=== PATIENT | male | born 1955 | race Caucasian/White ===

== ENCOUNTER 2019-02-10 10:40 | Observation (INO) ==
[2019-02-10 11:20] LABS: BASO# 0.01 X1000 (0.0-0.2); BASO% 0.1 % (0.0-0.8); EOS# 0.13 X1000 (0.0-0.7); EOS% 1.9 % (0.0-10.0); HEMATOCRIT 41.8 % (42.0-52.0); LYMPH# 1.01 X1000 (1.2-3.4); LYMPH% 14.7 % (20.5-51.1); MCH 29.2 PG (27-31); MCHC 33.5 g/dL (33-37); MCV 87.3 FL (81-99); MONO% 7.3 % (1.7-9.3); MPV 10.9 FL (7.4-10.4); NEUT# 5.22 X1000 (1.4-6.5); PLT 201 X1000 (130-400); RBC 4.79 XMIL (4.7-6.1); RDW 13.2 % (11.5-14.5); WBC 6.87 X1000 (4.8-10.8)
--- NOTE | 2019-02-10 11:23 | Diag Imaging Result Doc PS360 ---
EXAM: CHEST-PORTABLE - 02/10/2019 HISTORY: hypotension TECHNIQUE: Portable chest COMPARISON: 01/04/2019 FINDINGS: Heart size is normal. There are apparent mild COPD changes. There is stable right lower lung granuloma from old granulomatous disease. Lungs appear to be clear of acute changes. There is no consolidation, vascular congestion, pleural effusion, or pneumothorax identified. Central venous catheter remains in place. IMPRESSION: Mild COPD changes. No evidence of acute disease. Electronically signed by Ashwin Collado 02/10/2019 11:20 AM
--- NOTE | 2019-02-10 11:39 | EKG Report ---
Test Performed on : 02/10/2019 10:53:09 AM Test Reason : dizzines Blood Pressure : / mmHG Vent. Rate : 091 BPM Atrial Rate : 091 BPM P-R Int : 154 ms QRS Dur : 096 ms QT Int : 400 ms P-R-T Axes : 058 077 062 degrees QTc Int : 492 ms Normal sinus rhythm. Prolonged QT Abnormal ECG When compared with ECG of 08-JAN-2019 15:49, (Unconfirmed) T wave inversion no longer evident in Lateral leads Unconfirmed Result
[2019-02-10 12:31] LABS: ALB/GLOB RATIO 1.6; ALBUMIN 4.1 g/dL (3.5-5.0); CALCIUM 8.9 mg/dL (8.8-10.2); POTASSIUM 4.1 mmol/L (3.5-5.1); TOTAL BILIRUBIN 0.79 mg/dL (0.20-1.00); TOTAL PROTEIN 6.6 g/dL (6.3-8.3)
[2019-02-10] MEDS ORDERED: NS 1,000 ML IV ONE (13:19)
[2019-02-10] MEDS ORDERED: NS 500 ML IV ONE (13:19)
--- NOTE | 2019-02-10 13:19 | PROVIDER DOCUMENTATION ---
This chart was entered by Cristina Jaimes Scribe, acting as scribe for Oumar Ramirez MD. HPI-General Adult - General Chief Complaint: Dizziness Stated Complaint: LOW BP WEAKNESS Time Seen by Provider: 02/10/19 10:45 Source: patient, family () Allergies/Adverse Reactions: Patient Allergies Allergy/AdvReac Type Severity Reaction Status Date / Time No Known Allergies Allergy Verified 02/10/19 11:16 Home Medications: Home Medication List Medication Instructions Recorded Confirmed Last Taken Type Albuterol Sulfate Inhaler 2 puff INH [id number] PRN 02/10/19 02/10/19 02/10/19 History [Ventolin Hfa] Amlodipine [Norvasc] 5 mg PO DAILY 02/10/19 02/10/19 02/10/19 History Fluticasone/Umeclidin/Vilanter 1 ea INHALATION QAM 02/10/19 02/10/19 02/10/19 History [Trelegy Ellipta 100-62.5-25] Irbesartan [Avapro] 300 mg PO QAM 02/10/19 02/10/19 02/10/19 History Losartan [Cozaar] 50 mg PO DAILY 02/10/19 02/10/19 02/10/19 History - History of Present Illness -Gen Adult Nature of Presenting Problems: 63 yowm presents to the ed with multiple complaints acute onset yesterday morning. pt c/o hypotensive, dizziness, sob, nausea, syncope, left lateral neck fatigue, ARAIZA and left arm fatigue. pt sts on exam has improved and is nontoxic in appearance pt sts PCP changed his BP medication 2 weeks prior but has been doing well till onset yesterday Location of Pain/Injury: reports: head (ARAIZA) Pain Radiation: reports: no radiation Quality of Pain: reports: aching, fullness Severity: reports: mild Onset/Duration: reports: 24 hours ago Timing: reports: improving, intermittent Context/Activities at Onset: reports: light activity Modifying Factors: improves with: nothing Associated Symptoms: reports: dizziness, fatigue, headaches, malaise, muscle aches (left lateral neck and left arm), nausea, shortness of breath, syncope (x2 today). denies: back/neck pain, chest pain, cough, diarrhea, fever/chills, vomiting Similar Symptoms Previously?: No Recently seen or treated by another doctor?: No Review of Systems - Adult - REVIEW OF SYSTEMS - ADULT Constitutional: reports: see HPI, fatique. denies: chills, fever Eyes: denies: blurred vision, double vision Ears, Nose, Mouth & Throat: reports: no symptoms reported Cardiovascular: denies: chest pain, orthopnea, palpitations Respiratory: reports: see HPI, shortness of breath. denies: cough, wheezing Gastrointestinal: reports: see HPI, nausea. denies: abdominal pain, diarrhea, vomiting Genitourinary: reports: no symptoms reported Musculoskeletal: reports: see HPI, muscle aches (left neck and left arm), neck pain. denies: back pain Integumentary: reports: no symptoms reported Neurological: reports: see HPI, dizziness/vertigo, headache/migraines, syncope. denies: ataxia, seizure, tremors Psychiatric: reports: no symptoms reported Endocrine: reports: no symptoms reported Hematologic/Lymphatic: reports: no symptoms reported Allergic/Immunologic: reports: no symptoms reported All Other Systems: Reviewed and Negative Past History - Adult - PAST MEDICAL HISTORY-ADULT Review of Records: reports: Old Records Reviewed, Nursing Assessment Review, Medications Reviewed, Social history reviewed & non-contributory. Major Childhood Illnesses: reports: denies history Cardiovascular: reports: HTN Respiratory: reports: denies history Gastrointestinal: reports: denies history Genitourinary: reports: denies history Musculoskeletal: reports: denies history Neurological: reports: denies history Psychiatric: reports: denies history Endocrine/Immune: reports: denies history Other Conditions: reports: denies history Additional History: rectal cancer - PRIOR SURGERIES/PROCEDURES Surgical/Procedure History: denies: recent surgery - IMMUNIZATION STATUS Childhood Immunizations: See Nurse Assessment Flu Vaccine: See Nurse Assessment - FAMILY HISTORY Family History: reviewed, not pertinent - SOCIAL HISTORY Smoking: quit greater than 1 year Substance Use: denies Living Situation: family Physical Exam-General - PHYSICAL EXAM-ADULT Initial Vital Signs Reviewed: Yes - CONSTITUTIONAL General Appearance: appears well, alert, no apparent distress (pt is nontoxic in apperance) - EYES Eyes: PERRL/EOMI, pink conjunctivae - HEAD, EARS, NOSE, MOUTH & THROAT HENMT: moist mucous membranes. negative: other (no teeth) - NECK Neck: normal inspection, tender lateral (left side) - RESPIRATORY Respiratory: chest non-tender, lungs clear, normal breath sounds - CARDIOVASCULAR Cardiovascular: normal peripheral pulses, regular rate, rhythm - CHEST (BREASTS) Chest/Breast: deferred - GASTROINTESTINAL (ABDOMEN) Abdominal Exam: normal bowel sounds, non tender, soft, other (well healed scar on RLQ) - GENITOURINARY Male Genitalia: deferred Rectal Exam: deferred Hemoccult Exam: deferred - LYMPHATIC Lymphatic: no adenopathy - MUSCULOSKELETAL Back Exam: normal inspection, no CVA tenderness, no vertebral tenderness Extremity: normal range of motion, normal gait, normal inspection, no pedal edema, no calf tenderness, normal capillary refill, other (lue fatigue) - SKIN Integumentary: normal color, normal turgor, warm/dry - NEUROLOGIC Neurologic: grossly normal - PSYCHIATRIC Psych/Mental Status: normal mood/affect, normal thought content, normal thought process, oriented x 3 Progress - PLAN OF CARE/RESULTS Progress/Plan/Lab Results: Vital Signs - 8 hr 02/10/19 10:45 Temperature 97.7 F Pulse Rate 98 H Respiratory Rate 20 Blood Pressure 106/68 O2 Sat by Pulse Oximetry 97 Laboratory Results - last 24 hr 02/10/19 11:09 POC Glucose 136 H Orders Category Date Time Status Nursing- Obtain EKG ONCE Care 02/10/19 11:00 Active CHEST-PORTABLE [RAD] Stat Exams 02/10/19 11:00 Ordered CBC WITH DIFF [HEME] Stat Lab 02/10/19 11:02 Ordered COMPREHENSIVE METABOLIC PANEL [CHEM] Stat Lab 02/10/19 11:02 Ordered TROPONIN T Stat Lab 02/10/19 11:00 Ordered EKG [EKG] Stat Ther 02/10/19 10:49 Ordered EKG [EKG] Stat Ther 02/10/19 11:00 Ordered Result Diagrams: 02/10/19 11:10 02/10/19 11:10 - REASSESSMENT Reassessment #1 Time Reassessed: 13:17 Status: unchanged (no distress and dr ramirez at bedside) - EKG 1 Time of EKG reading by physician:: 10:53 EKG Read and Signed by:: Oumar Ramirez EKG Interpretation (*Must complete 3 of following elements*): Abnormal Rate: 91 Rhythm: nsr [place]: normal QRS: other (prolonged QT) NM Interval: normal ST Wave: normal - XRAY 1 XRAY: Bilateral XRAY Study: Chest Impression: See EMR Report (EXAM: CHEST-PORTABLE - 02/10/2019 HISTORY: hypotension TECHNIQUE: Portable chest COMPARISON: 01/04/2019 FINDINGS: Heart size is normal. There are apparent mild COPD changes. There is stable right lower lung granuloma from old granulomatous disease. Lungs appear to be clear of acute changes. There is no consolidation, vascular congestion, pleural effusion, or pneumothorax identified. Central venous catheter remains in place. IMPRESSION: Mild COPD changes. No evidence of acute disease. Electronically signed by Ashwin Collado 02/10/2019 11:20 AM 02/10/19 1120 Interpreting Physician: Ashwin Collado MD Dictated Date/Time: 02/10/19 1119 cc: Oumar Ramirez MD; Gagandeep Snell Jr, MD) - CONSULTS/PCP/HOSPITALIST Notification #1 *Consult/PCP/Hospitalist*: dr escalera for dr snell group Time Discussed: 13:14 Reason/Comments: phone consult Departure - Departure Date of Disposition Decision: 02/10/19 Time of Disposition Decision: 13:18 DIAGNOSIS: HEIDI (acute kidney injury) Hypotension Qualifiers: Hypotension type: other hypotension type Qualified Code(s): I95.89 - Other hypotension Disposition: ADMITTED INPATIENT 09 Certified Medical Emergency: Emergent Condition: Good Referrals and Follow-Ups: Gagandeep Snell Jr, MD [Primary Care Provider] - - Critical Care Note This patient required my direct & personal management of CC.: No Attestation - Physician/ TIFFANIE Attestation Patient care was provided by Advanced Practice Provider:: No The physician spent face to face time with patient:: Yes Advanced Practice Provider documentation review:: Supervising physician onsite and consulted in the evaluation and care of this patient. The physician did have a face to face encounter with the patient. This chart was documented by the indicated scribe, (Cristina Jaimes Scribe) and accurately reflects the services I performed and decisions made by me, Oumar Ramirez MD, as attested by the provider's signature.
[2019-02-10] MEDS ORDERED: VENTOLIN HFA INH PRN (15:01)
[2019-02-10] MEDS: NS 1,000 ML IV SCH (15:09)
--- NOTE | 2019-02-10 15:27 | HISTORY AND PHYSICAL ---
CHIEF COMPLAINT: Near syncope and weakness. PRESENT ILLNESS: This is the first recent [facility] admission for this 63-year-old white man with weakness and hypotension, who presented to the emergency room. He was found to have elevated BUN and creatinine compared to previous with BUN 34 and creatinine 2.0. Previous levels were 25 and 1.3. Other lab was unremarkable, except for blood sugar 128. Troponin-T was less than 0.01. CPK was not done. Home medicines included Avapro and Cozaar, also amlodipine. There is history of COPD and he uses Ventolin HFA 2 puffs q. 4 hours p.r.n. Initial blood pressure was 106/70. Because of hypotension and acute renal injury, he was admitted for further evaluation and treatment. He is a patient of Dr. Snell, who recently did a 24 hour urine to check urine protein. PAST MEDICAL HISTORY: Significant for rectal carcinoma. He had bilateral ureteral stents per Dr. Sandra at the time of his rectal cancer surgery. He has had no significant renal problems and no history of BPH. He has had knee, wrist and ankle surgery. PRESENT MEDICATIONS: Albuterol inhaler 2 puffs q.i.d., amlodipine 5 mg one daily, Trelegy Ellipta 1 inhalation q.a.m., Avapro 300 mg 1 q.a.m., and losartan 50 mg daily. ALLERGIES: None known. REVIEW OF SYSTEMS: Unremarkable. He has had no recent weight loss. His dizziness has just been for several days. He almost had a syncopal episode this morning. He has had no nausea and vomiting, and no weakness of extremities. FAMILY HISTORY: Unremarkable. SOCIAL HISTORY: and lives with his . PHYSICAL EXAMINATION: VITAL SIGNS: Temperature 98.0 degrees, heart rate 90, respiration 18, blood pressure 153/73, O2 saturation on room air 96%. GENERAL: Well-developed, well-nourished white man in no distress. HEENT: He wears glasses. Tympanic membranes without inflammation. Pharynx benign. NECK: Supple with no mass or lymphadenopathy. There is no carotid bruit. HEART: Regular in rate and rhythm with no murmur, rub or gallop. LUNGS: Clear with no rales or rhonchi. ABDOMEN: Soft with no mass, tenderness, or organomegaly. EXTREMITIES: No cyanosis, clubbing, or edema. RECTAL AND GENITALIA: Deferred. IMPRESSION: 1. Hypotension. 2. Near syncope. 3. Acute renal injury. 4. Hypertension. 5. History of rectal carcinoma. PLAN: Admit for further evaluation. cc: Kunal Chaves MD
[2019-02-11] MEDS: NS 1,000 ML IV SCH (03:36)
[2019-02-11 06:01] LABS: CALCIUM 8.4 mg/dL (8.8-10.2); CREATININE 1.6 mg/dL (0.7-1.2); POTASSIUM 4.3 mmol/L (3.5-5.1)
[2019-02-11 08:04] VITALS: BP 151/86
[2019-02-11] MEDS ORDERED: NORVASC PO SCH (09:00)
--- NOTE | 2019-02-11 15:22 | DISCHARGE SUMMARY ---
ADMISSION DATE: 02/10/2019 DISCHARGE DATE: 02/11/2019 This is the first recent [facility] admission for this 63-year-old, white man, a patient of Dr. Gagandeep Snell, who developed some near syncopal episodes and weakness at home and presented to the emergency room. Blood pressure was low at 106 systolic. Also, laboratory indicated some acute renal injury compared to previous studies. BUN was 34 and creatinine 2.0. It was noted that he was taking both Avapro and losartan. These were discontinued and he was maintained on amlodipine. INITIAL LABORATORY: Sodium 139, potassium 4.1, BUN 34, creatinine 2.0, blood sugar 128. Troponin less than 0.01. Liver functions normal. Hemoglobin 14.0, hematocrit 41.8, white blood count 6800 with normal differential. HOSPITAL COURSE: Blood pressure returned to normal with the addition of IV fluids. Avapro and losartan were held. Lab this morning revealed blood studies to be improved with BUN 26 and creatinine 1.6. Blood pressure is 151/86. O2 saturation on room air is 98%. He feels better. He is ambulatory and eating well. He is discharged home to follow up with Dr. Snell in the office later this week, or Tuesday. At that time, blood pressure medicine will be adjusted if needed. Norvasc could be increased to 10 mg daily if needed. Repeat laboratory will be done in a few weeks to monitor BUN and creatinine. cc: Kunal Chaves MD
== END 2019-02-11 11:39 | disposition home or self-care (01) ==
LOC: EDIPHOLD 10:40 → ED 10:40 → 1N 14:57
PROVIDERS: ADMIT Family Medicine; ATTEND Emergency Medicine